=== PATIENT | male | born 2000 | race Caucasian/White ===

== ENCOUNTER 2019-04-26 12:37 | Emergency (ER) | payer BC, SELFPAY ==
[2019-04-26 12:37] VITALS: BP 151/86; PULSE 89; RESP 16; TEMP 36.7; O2SAT 99; BMI 33.3
--- NOTE | 2019-04-26 13:23 | ED.VIS.EYE ---
History of Present Illness Chief Complaint: Eye Problem Informant: Patient Location: Right Eye Onset: Hours - 2 Context: Sudden Onset Timing: Continuous Current Severity: Gone Maximum Severity: Mild Worsened by: nothing Relieved by: nothing Associated Symptoms - Eyes: Redness History of injury: Yes, Grinding injury Visual correction: None Narrative: Patient presents a couple hours after an injury while grinding in his garage. He was wearing safety glasses. He states a wire found its way underneath his safety glasses and apparently went directly into his eye. He reached up and pulled out a piece of wire that was an inch long, estimated, directly out of his eye. Since then, he has not been able to see anything out of that eye. He does not wear any glasses or contacts. No other injuries. Past Medical History - Allergies and Home Meds Allergies/Adverse Reactions: Allergies No Known Allergies Allergy (Verified 04/26/19 12:39) Primary Care Physician: Dell Hernandez MD [STAFF PHYSICIAN] - Past Medical History: None Smoking Status: Never smoker Drugs: None Review of Systems General: Denies: Chills, Fever Eyes: Reports: Blurred vision - right. Denies: Diplopia ENT: Denies: Bilateral ear pain, Sore throat Cardiovascular: Denies: Chest pain, Palpitations Respiratory: Denies: Dyspnea, Cough Gastrointestinal: Denies: Nausea, Vomiting Skin: Denies: Rash, Wounds Neurological: Denies: Headache, Weakness, Parasthesia Physical Exam Visual Acuity: Uncorrected - OS 20/25; OD 20/400 Eyelid: Normal inspection, No foreign body Right Conjunctiva/Sclera: - - diffuse conj injection Left Conjunctiva/Sclera: Normal inspection, No foreign body Right Cornea: No foreign body, Fluorescein dye uptake - at distal 5 O'clock puncture wound; negative Андрей sign Left Cornea: Normal inspection, No foreign body - gross inspection Extraocular Motion: Normal exam, No pain, No palsy Anterior chamber: Normal exam, Deep and quiet - no hyphema/hypopyon Right intraocular pressure: ND Left intraocular pressure: ND Vital Signs/Narrative: Vital Signs Temp Pulse Resp BP Pulse Ox 04/26/19 12:37 98.1 F 89 16 151/86 H 99 Inital Vital Signs reviewed: Yes General: Well nourished, Well developed, - - well-appearing, nad Head: Normocephalic, Atraumatic Extremities: Nontender, No edema Skin: Normal color, No rash, No Trauma Neurological: Alert, Oriented x3, Cranial nerves II-XII grossly intact, Normal Strength, Normal Sensation, Normal Gait Psychological: Normal affect, Normal Mood Diagnostic/Tx/Re-eval - Treatment and Re-Evaluation Tetracaine: right eye - Medical Decision Making Discussed with Dr. Dey with ophthalmology who recommends emergent transfer to a tertiary care center that has posterior fossa specialist which is not available here at this time. He recommends the patient staying upright, avoiding rubbing his eye, Valsalva maneuvers/coughing, and recommends against giving any other drops or checking pressures at this time. Discussed w/ Trauma quarterback at [facility], accepted by Dr. Brown. Will send pt to the ER. ED Disposition - Plan for ED Patient: Disposition: [facility] Diagnosis: Penetrating eye injury, right eye Referrals: Dell Hernandez MD [STAFF PHYSICIAN] -
--- NOTE | 2019-04-26 14:08 | ED.RN ---
EYE PATCH PLACED OVER RIGHT EYE
[2019-04-26 14:58] VITALS: BP 146/84; PULSE 79; RESP 16; TEMP 36.6; O2SAT 99
--- NOTE | 2019-04-26 15:54 | ED.RN ---
PT REQUESTING TO GO BY PRIVATE CARE TO [facility]. DR AGREEABLE TO THIS. GIRLFRIEND SIGNED TRASPORT FORM PT DISCHARGED TO [facility] THIS TIME.,REPORT CALLED TO [facility]
== END 2019-04-26 15:55 | disposition short-term general hospital (02) ==
PROVIDERS: Emergency Provider Emergency Medicine
DX: S05.61XA Penetrating wound without foreign body of right eyeball, initial encounter (principal); W30.89XA Contact with other specified agricultural machinery, initial encounter; Y93.9 Activity, unspecified; Y92.9 Unspecified place or not applicable
CPT/HCPCS: 99284; A4216

== ENCOUNTER 2023-11-09 16:53 | Emergency (ER) | payer OTHER, SELFPAY ==
[2023-11-09 16:54] VITALS: BP 162/109; PULSE 93; RESP 18; TEMP 36.6; O2SAT 99
--- NOTE | 2023-11-09 17:10 | RAD_ITS ---
INDICATION: pain, swelling EXAMINATION/TECHNIQUE: X-RAY - RIGHT XR Foot Min 3 Views 3 VIEWS COMPARISON: None FINDINGS: SOFT TISSUES: Great toe edema. No subcutaneous emphysema.. No radiopaque foreign body. BONES/JOINTS: Transverse sclerosis of the base of the first distal phalanx tuft concerning for mild impaction fracture. No dislocation.. Sclerosis along the fourth metatarsal lateral diaphysis without osseous expansion, fracture lucency, or cortical step-off.. Preservation of the joint space.. No sclerotic or destructive changes observed. RAD/Foot min 3 Views IMPRESSION: Concern for small impaction fracture of the base of the first distal phalanx tuft. Sclerosis within the fourth metatarsal is nonspecific and can be seen with sequela of prior injury or melorheostosis. Electronically Signed: Michel Ferguson MD at 19:40 EDT ,
--- NOTE | 2023-11-09 18:17 | ED.VIS.LOWEX ---
HPI History of Present Illness Chief Complaint: Lower Extremity Injury Narrative Narrative: 23 year old male who denies significant past medical history presents with pain in his right heel that he had since and injury he sustained a few hours ago. He states he was playing basketball barefoot, jumped up, and landed on the back of his foot and heel. He denies falling or hitting his head, but states he was unable to bear weight on his right heel. No other injury. He has a pair of crutches that he was using to help him ambulate. PFSH PFSH Home Medications ?Medication ?Instructions ?Recorded ?Last Taken ?Type hydrocodone-acetaminophen 5-325mg 1 tab PO Q6H PRN PRN Pain ##16 06/07/14 Unknown Rx 5mg-325mg Allergy/AdvReac Type Severity Reaction Status Date / Time No Known Allergies Allergy Verified 11/09/23 16:54 Social History Smoking Status: Never smoker ROS ROS ED ROS Narrative Review of systems positive for tenderness of right heel/calcaneus, worse with weight bearing and waling. No ankle or knee pain. EXAM Physical Exam Narrative Exam Narrative: Afebrile. Vital signs noted. Regular rate and rhythm. Lungs clear to auscultation bilaterally, abdomen soft, nontender, with positive bowel sounds. Positive tenderness to palpation on right heel. No ecchymosis. No palpable achilles tendon deficit. No crepitance. Palpable dorsalis pedis pulse. Good capillary refill. Able to plantarflex and dorsiflex right foot. Uninjured at ankle and above. Const Vital Signs: 11/09/23 16:54 Temperature 97.8 F Temperature Source Temporal Pulse Rate 93 Respiratory Rate 18 Blood Pressure 162/109 H Blood Pressure Mean 126 Pulse Ox 99 Oxygen Delivery Method Room Air MDM MDM MDM Narrative Medical decision making narrative: Concern is for calcaneal fracture versus foot contusion. Xrays of the right foot in 3 views interpreted by myself independently shows no evidence of acute fracture. He already has crutches. He declined analgesia here in the ED and will take over the counter medications. He was placed in a post operative shoe and was told to be non weight bearing on his right foot until cleared by podiatry. Referred to Dr. Shearer sludge control attendant. I feel he can be discharged to follow up. Return instructions to the emergency departement were reviewed. Disposition is discharged home in stable condition. Clinical Impression: 1. Right heel/calcaneus contusion 2. Right heel pain. Discharge Plan Triage Chief Complaint: Lower Extremity Injury ED Provider: Elmer Patel Dx/Rx/DC Orders Instructions: ED Foot Contusion Prescriptions: No Action hydrocodone-acetaminophen 1 TABLET tablet 1 tab PO Q6H PRN PRN (Reason: Pain) Qty: 16 0RF Primary Care Provider: Care Physician,No Primary Referrals: Juan Shearer DPM [Med Staff - Active Staff] - 3-5 Days Care Physician,No Primary [Primary Care Provider] - Activity Restrictions/Additional Instructions: Over the counter medications such as ibuprofen as needed for pain. Non weight bearing on Right foot until seen by podiatry. Use your crutches. Print Language: Palauan Disposition Disposition: Home, Self Care
[2023-11-09 18:23] VITALS: BMI 29.8
== END 2023-11-09 18:24 | disposition home or self-care (01) ==
PROVIDERS: Emergency Provider Emergency Medicine; Visit Provider Emergency Medicine
DX: S90.31XA Contusion of right foot, initial encounter (principal); X58.XXXA Exposure to other specified factors, initial encounter; Y93.67 Activity, basketball
CPT/HCPCS: 73630; 99283